=== PATIENT | male | born 1940 | race African-American/Black ===

== ENCOUNTER 2022-11-08 13:53 | Emergency (ER) | payer MEDICARE, SELFPAY ==
[2022-11-08] VITALS (8 sets, daily range): BP systolic 119–176; BP diastolic 48–73; PULSE 54–66; RESP 14–17; TEMP 36.4–36.8; O2SAT 100
--- NOTE | ~2022-11-08 | XR_ITS ---
XR chest 1V portable 11/08/2022 15:38 Indication: Shortness of breath Procedure: AP portable chest Comparison: No prior studies for comparison. Findings: Borderline heart size. No focal air space disease, pulmonary edema, pleural effusion or leif pected pneumothorax. There are degenerative changes of the glenohumeral joints. Impression: 1: No acute cardiopulmonary disease. Reviewed, dictated and finalized at location L. Impression: 1: No acute cardiopulmonary disease.
--- NOTE | 2022-11-08 14:04 | ECG_ITS ---
Measurements Intervals Center Point Rate: 65 P: 41 CT: 302 QRS: -65 QRSD: 169 T: 21 QT: 442 QTc: 460 Interpretive Statements SINUS RHYTHM WITH FIRST DEGREE AV BLOCK RIGHT BUNDLE BRANCH BLOCK LEFT ANTERIOR FASCICULAR BLOCK CANNOT RULE OUT SEPTAL INFARCT, AGE INDETERMINATE BASELINE ARTIFACT- I, II, III, AVR, V2 ABNORMAL ECG NO PREVIOUS ECG AVAILABLE FOR COMPARISON Electronically Signed On 11-08-2022 18:25:45 CDT by Kyle Vivar D.O.
[2022-11-08 14:28] LABS: Basophils Percent Auto 0.4 % (0.2-1.2); Eosinophils Absolute Auto 0.3 K/mm3 (0-0.3); Eosinophils Percent Auto 3.1 % (0-4.4); Hemoglobin 10.8 g/dL (14.0-18.0); Immature Granulocyte Absolute 0.01 K/mm3 (0.00-0.031); Immature Granulocyte Percent A 0.1 % (0-0.5); Lymphocytes Absolute Auto 3.57 K/mm3 (0.9-3.2); Lymphocytes Percent Auto 42.9 % (18.3-44.2); Mean Corpuscular HGB Conc 31.8 g/dl (32-36); Mean Corpuscular Hemoglobin 28.5 pg (26-34); Mean Corpuscular Volume 89.7 fl (80-100); Monocytes Absolute Auto 0.7 K/mm3 (0.1-0.6); Neutrophils Absolute Auto 3.8 K/mm3 (1.3-6.7); Neutrophils Percent Auto 45.5 % (45.5-73.1); Platelet Count Result 196 k/mm3 (150-375); Red Blood Count 3.79 M/mm3 (4.6-6.20); Red Cell Distribution Width 14.6 % (11.5-14.5); White Blood Count 8.3 K/mm3 (4.5-10.0)
[2022-11-08 14:38] LABS: Alanine Aminotransferase 20 U/L (6-50); Albumin Level 4.1 g/dL (3.5-5.1); Alkaline Phosphatase 112 U/L (38-126); Anion Gap 8 mmol/L (8-16); Aspartate Amino Transferase 24 U/L (17-59); Bilirubin,Total 0.4 mg/dL (0.2-1.3); Blood Urea Nitrogen 23 mg/dL (9-20); Carbon Dioxide 26 mmol/L (22-30); Chloride 106 mmol/L (98-107); Estimated CRCL calculation 53 ml/min; Estimated Glomerular Filt Rate 58; Glucose 186 mg/dL (65-110); Potassium 4.1 mmol/L (3.4-5.0); Sodium 140 mmol/L (137-145)
[2022-11-08 14:42] LABS: INR 1.1; Prothrombin Time 14.4 Seconds (11.1-14.7)
--- NOTE | 2022-11-08 15:11 | ED.EXTPRO ---
HPI - Extremity Problem General Chief complaint: Extremity Problem,Nontraumatic Stated complaint: right foot swelling and pain Time Seen by Provider: 11/08/22 14:51 History of Present Illness HPI Narrative: Pt presents with swelling to both legs and feet for several months. Pt denies CP. Pt says he has some mild SOB. Pt denies fever or cough. Related Data Allergies Allergy/AdvReac Type Severity Reaction Status Date / Time No Known Allergies Allergy Verified 11/08/22 15:21 Review of Systems Review of Systems: All systems reviewed & are unremarkable except as noted in HPI and below Exam Const: General: healthy appearing and no acute distress Nutritional Appearance: well nourished Orientation/consciousness: patient oriented x3 Limitations: no limitations Neck: Neck: normal visual inspection Resp: Effort & Inspection: normal respiratory effort Auscultation: clear to auscultation bilaterally Cardio: Rate: regular rate Rhythm: regular rhythm GI: GI Palp: Yes Soft to palpation Auscultation: normal bowel sounds Skin: General skin exam: normal color Wounds: no wounds Neuro: General: patient oriented x3, moves all extremities, no meningeal signs, no focal motor deficits and CN's II-XI intact bilaterally Cranial nerves: Yes Nystagmus not present Speech: normal speech Extrem: General: edema Other: to both legs and feet Psych: Mental Status: mental status grossly normal Affect: normal affect Attitude: cooperative Course Vital Signs Vital signs: Vital Signs Temperature 97.5 F L 11/08/22 13:55 Pulse Rate 66 11/08/22 13:55 Respiratory Rate 16 11/08/22 13:55 Blood Pressure 119/48 L 11/08/22 13:55 Pulse Oximetry 100 11/08/22 13:55 Oxygen Delivery Room Air 11/08/22 13:55 Temperature 98.3 F 11/08/22 16:15 Pulse Rate 55 L 11/08/22 15:19 Respiratory Rate 17 11/08/22 15:19 Blood Pressure 128/72 11/08/22 15:17 Pulse Oximetry 100 11/08/22 15:19 Oxygen Delivery Room Air 11/08/22 14:44 MDM - Extremity (Nontraumatic) MDM Narrative Medical decision making narrative: pt presents with swelling to both legs for several months. Pt denies CP some slight sob. no acute changes on ekg. will check cbc, cxr and cmp before diuresis. lytes and cbc ok roldan give lasix 40 mg IVP. pt diuresing nicely and wants to gohome. Lab Data 11/08/22 14:12 11/08/22 14:12 Labs: Lab Results 11/08/22 Range/Units 14:12 WBC 8.3 (4.5-10.0) K/mm3 RBC 3.79 L (4.6-6.20) M/mm3 Hgb 10.8 L (14.0-18.0) g/dL Hct 34.0 L (42.0-52.0) % MCV 89.7 (80-100) fl MCH 28.5 (26-34) pg MCHC 31.8 L (32-36) g/dl RDW 14.6 H (11.5-14.5) % Plt Count 196 (150-375) k/mm3 MPV 12.0 H (7.4-10.4) fl Immature Gran % (Auto) 0.1 (0-0.5) % Neut % (Auto) 45.5 (45.5-73.1) % Lymph % (Auto) 42.9 (18.3-44.2) % Kinney % (Auto) 8.0 (2.6-8.5) % Eos % (Auto) 3.1 (0-4.4) % Baso % (Auto) 0.4 (0.2-1.2) % Lymph # (Auto) 3.57 H (0.9-3.2) K/mm3 Kinney # (Auto) 0.7 H (0.1-0.6) K/mm3 Eos # (Auto) 0.3 (0-0.3) K/mm3 Baso # (Auto) 0.0 (0.0-0.1) K/mm3 Abs Immat Gran (auto) 0.01 (0.00-0.031) K/mm3 Absolute Neuts (auto) 3.8 (1.3-6.7) K/mm3 Absolute Nucleated RBC 0.0 (0.0-0.012) K/mm3 Nucleated RBC % 0.0 (0.0-0.2) % PT 14.4 (11.1-14.7) Seconds INR 1.1 Sodium 140 (137-145) mmol/L Potassium 4.1 (3.4-5.0) mmol/L Chloride 106 (98-107) mmol/L Carbon Dioxide 26 (22-30) mmol/L Anion Gap 8 (8-16) mmol/L BUN 23 H (9-20) mg/dL Creatinine 1.20 (0.7-1.3) mg/dL Estim Creat Clear Calc 53 ml/min Estimated GFR 58 L (59 - ) Glucose 186 H (65-110) mg/dL Calcium 9.0 (8.4-10.2) mg/dL Total Bilirubin 0.4 (0.2-1.3) mg/dL AST 24 (17-59) U/L ALT 20 (6-50) U/L Alkaline Phosphatase 112 (38-126) U/L Total Protein 8.0 (6.3-8.2) g/dL Albumin 4.1 (3.5-5.1) g/dL ECG Data EKG #1: Interpretation: marilu davies
[2022-11-08] MEDS: FUROSEMIDE INJ 40 MG/4 ML VIAL IV PUSH (15:23)
== END 2022-11-08 16:20 | disposition home or self-care (01) ==
PROVIDERS: Emergency Medicine; Emergency Provider Emergency Medicine; PCP Internal Medicine
DX: R60.0 Localized edema (principal); I44.0 Atrioventricular block, first degree; I45.2 Bifascicular block
CPT/HCPCS: 36415; 71045; 80053; 85025; 85610; 93005; 96374; 99284; J1940

== ENCOUNTER 2022-12-10 20:18 | Emergency (ER) | payer MEDICARE, SELFPAY ==
--- NOTE | ~2022-12-10 | XR_ITS ---
XR hand RT 2V 12/10/2022 21:02 Indication: Right hand swelling Procedure: 2 views right hand Comparison: No prior studies for comparison. Findings: There is moderate polyarticular osteoarthritis. 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 No acute fracture or traumatic malalignment. No erosive changes. No focal soft tissue abnormality. Impression: 1: No acute fracture. 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 Reviewed, dictated and finalized at location A. Impression: 1: No acute fracture. 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
[2022-12-10 20:26] VITALS: BP 169/62; PULSE 66; RESP 18; TEMP 36.7; O2SAT 100
--- NOTE | 2022-12-10 21:06 | ED.GENADULT ---
HPI - General Adult General Chief complaint: Extremity Problem,Nontraumatic Stated complaint: swelling to right hand Time Seen by Provider: 12/10/22 20:41 Source: patient Mode of arrival: ambulatory Limitations: no limitations History of Present Illness HPI narrative: This is a 82-year-old male who presents to the ED with chief complaint of right hand swelling x1 month. Reports pain following an injury that happened a month ago. States he tripped over a door step and braced himself with both of his hands. States he had some pain in the right hand but never got seen for it. Patient reports some numbness to the fingers on the affected hand. Reports pain is worse at night. Related Data Allergies Allergy/AdvReac Type Severity Reaction Status Date / Time No Known Allergies Allergy Verified 11/08/22 15:21 Review of Systems Review of Systems: CONSTITUTIONAL: Denies fever, chills, or sweats. EYES: Denies visual changes, redness, or discharge. ENT: Denies rhinorrhea, congestion, sore throat, or otalgia. CARDIOVASCULAR: Denies chest pain, palpitations, or edema. RESPIRATORY: Denies cough or dyspnea. GASTROINTESTINAL: Denies abdominal pain, nausea, vomiting, or diarrhea. GENITOURINARY: Denies dysuria or hematuria. SKIN: Denies rash or itching. MUSCULOSKELETAL: See HPI NEUROLOGIC: Denies headache, numbness, dizziness, or weakness. PSYCHIATRIC: Denies anxiety or depression. Exam Narrative: GENERAL: Well-appearing, well-nourished, and in no acute distress. HEAD: Normocephalic, atraumatic. EYES: PERRLA and EOMI. ENT: Nares clear, no rhinorrhea or epistaxis. Mucous membranes moist. Oropharynx without tonsillar hypertrophy exudate or other lesions. NECK: Supple. No adenopathy or masses. CHEST: No respiratory distress. Clear to auscultation. No wheezes rales or rhonchi HEART: Regular rate and rhythm. No murmur heard. Normal peripheral pulses. ABDOMEN: Soft, nontender, nondistended, normal active bowel sounds. MSK: Right hand: Subjective alteration to sensation of the fingers. Able to detect light touch throughout all of his fingers. No tenderness throughout the wrist or hand. No swelling or deformity. Left hand: Benign. SKIN: Warm, dry, no rash. NEURO: Alert and oriented x3. No focal deficits. PSYCH: Normal mood and affect. Course Vital Signs Vital signs: Vital Signs Temperature 98.1 F 12/10/22 20:26 Pulse Rate 66 12/10/22 20:26 Respiratory Rate 18 12/10/22 20:26 Blood Pressure 169/62 H 12/10/22 20:26 Pulse Oximetry 100 12/10/22 20:26 Oxygen Delivery Room Air 12/10/22 20:26 Temperature 98.1 F 12/10/22 20:26 Pulse Rate 66 12/10/22 20:26 Respiratory Rate 18 12/10/22 20:26 Blood Pressure 169/62 H 12/10/22 20:26 Pulse Oximetry 100 12/10/22 20:26 Oxygen Delivery Room Air 12/10/22 20:26 Medical Decision Making MDM Narrative Medical decision making narrative: This is an 82-year-old male who presents to the ED with chief complaint of right hand pain and swelling for the past month. Vitals are normal. Exam is largely benign. Patient has no tenderness. Very mild amount of swelling in the hand. No signs of infection. X-ray was obtained and does not show any acute fractures or dislocations. It does show a large amount of arthritis throughout the right hand. Feel the symptoms are likely due to polyarticular arthritis versus carpal tunnel. Discharged in stable condition. He informed that his kidneys have been good shape and he can take anti-inflammatories. I have given him a small dose of Toradol here and prescription for low-dose naproxen. He is understanding and agreeable with plan for discharge and follow-up with PCP. Return precautions given and supportive measures discussed. Vital Signs Vital Signs: Vital Signs Temperature 98.1 F 12/10/22 20:26 Pulse Rate 66 12/10/22 20:26 Respiratory Rate 18 12/10/22 20:26 Blood Pressure 169/62 H 12/10/22 20:26 Pul
== END 2022-12-10 21:58 | disposition home or self-care (01) ==
PROVIDERS: Emergency Provider Physician Assistant; PCP Internal Medicine
DX: M25.541 Pain in joints of right hand (principal)
CPT/HCPCS: 73120; 99283